=== PATIENT | female | born 1950 | race African-American/Black ===

== ENCOUNTER 2017-05-27 11:33 | Inpatient (IN) | payer MEDICAID, OTHER ==
[~2017-05-27] VITALS: Ht 167.6 cm; Wt 78.0 kg
[~2017-05-27 11:33] MED LIST: ALBU6.7H INH; BACL20TA PO; GABA600T PO; LEVO175T7 PO; NAPR220T66 PO; PROT40 PO
[2017-05-27 13:27] LABS: BASOPHILS % 1.3 % (0.0-2.0); EOSINOPHILS % 3.5 % (0.0-5.0); HEMATOCRIT. 40.6 % (36.0-48.0); HEMOGLOBIN. 13.1 g/dL (12.0-16.0); LYMPHOCYTES % 38.8 % (20.0-50.0); MEAN CORPUSCULAR HEMOGLOBIN 22.5 pg (28.0-32.0); MEAN CORPUSCULAR VOLUME 69.8 fL (81.0-99.0); MONOCYTES % 9.3 % (2.0-8.0); NEUTROPHILS % 47.1 % (40.0-76.0); PLATELET 181 x1000/uL (130-400); RED BLOOD CELL COUNT 5.81 mill/uL (4.2-5.4); RED CELL DISTRIBUTION WIDTH 14.8 % (11.6-14.6)
[2017-05-27 13:35] LABS: PROTHROMBIN TIME 10.1 sec (9.4-11.6)
[2017-05-27 13:43] LABS: CARBON DIOXIDE 26 mEq/L (21-32); CHLORIDE 106 mEq/L (98-107); ETHANOL BLOOD < 10 mg/dL; TROPONIN I 0.07 ng/mL (0.00-0.04)
[2017-05-27 14:15] LABS: PLATELET ESTIMATE NORMAL
[2017-05-27] MEDS ORDERED: DIPHENHYDRAMINE 50MG/ML VIAL IV PRN (15:00)
[2017-05-27] MEDS ORDERED: ONDANSETRON HCL 4MG/2ML VIAL IV PRN (15:00)
[2017-05-27] MEDS: MORPHINE SULFATE 4 MG/ML CPJ (NOT FOR IM USE) IV PRN ×2 (15:26→21:13)
[2017-05-27 16:42] LABS: CLARITY URINE CLEAR (CLEAR); COLOR URINE YELLOW (YELLOW); GLUCOSE URINE NEGATIVE (NEGATIVE); KETONES URINE NEGATIVE (NEGATIVE); LEUKOCYTE ESTERASE URINE NEGATIVE (NEGATIVE); NITRITE URINE NEGATIVE (NEGATIVE); OCCULT BLOOD URINE NEGATIVE (NEGATIVE); PH URINE 6.5 (4.5-8.0); PROTEIN URINE NEGATIVE (NEGATIVE); SPECIFIC GRAVITY URINE 1.007 (1.005-1.030); UROBILINOGEN URINE 0.2 E.U./dL (0.2-1.0)
[2017-05-27 16:50] LABS: *AMPHETAMINES SCREEN URINE NEGATIVE (NEGATIVE); *BARBITURATES SCREEN URINE NEGATIVE (NEGATIVE); *BENZODIAZEPINES SCREEN URINE NEGATIVE (NEGATIVE); *COCAINE SCREEN URINE NEGATIVE (NEGATIVE); CANNABINOID URINE SCREEN NEGATIVE (NEGATIVE); METHADONE URINE SCREEN NEGATIVE (NEGATIVE); OPIATES URINE SCREEN PRESUMTIVE POSITIVE (NEGATIVE); PHENCYCLIDINE URINE SCREEN NEGATIVE (NEGATIVE)
[2017-05-27] MEDS: ACETAMINOPHEN 325MG TABLET PO PRN (17:52)
[2017-05-27 18:00] VITALS: BP 141/82
[2017-05-27 18:19] VITALS: BP 141/82
[2017-05-27] MEDS ORDERED: PNEUMOCOCCAL 23-VAL P-SAC VAC 0.5 ML IM ONE (19:00)
[2017-05-27 20:00] VITALS: BP 109/66
[2017-05-27] MEDS: SODIUM CHLORIDE 0.9% INJ 3ML FLUSH IVF SCH (21:14)
[2017-05-27 22:00] VITALS: BP 107/68
[2017-05-27] MEDS ORDERED: BUPR-102 PO (23:15)
[2017-05-27] MEDS ORDERED: NICO-645 TD (23:15)
[2017-05-27] MEDS ORDERED: LOSA50TA20 PO (23:15)
[2017-05-27] MEDS ORDERED: IRON1CAP21 PO (23:15)
[2017-05-27] MEDS ORDERED: LEVO112T2 PO (23:15)
[2017-05-27] MEDS ORDERED: MELO-106 PO (23:15)
[2017-05-27] MEDS ORDERED: OLAN15TA3 PO (23:15)
[2017-05-27] MEDS ORDERED: LORA2VIA33 PO (23:15)
[2017-05-27] MEDS ORDERED: ATOR20TA PO (23:15)
[2017-05-28] VITALS (9 sets, daily range): BP systolic 103–109; BP diastolic 63–70
[2017-05-28] MEDS ORDERED: CITA20TA19 PO (01:06)
[2017-05-28] MEDS ORDERED: CARI350T PO (01:06)
[2017-05-28] MEDS ORDERED: VIT1TABL86 PO (01:06)
[2017-05-28] MEDS: MORPHINE SULFATE 4 MG/ML CPJ (NOT FOR IM USE) IV PRN ×2 (01:15→09:07)
[2017-05-28] MEDS ORDERED: LORAZEPAM 0.5MG TABLET PO PRN (03:00)
[2017-05-28] MEDS: SODIUM CHLORIDE 0.9% INJ 3ML FLUSH IVF SCH (04:51)
[2017-05-28] MEDS ORDERED: LEVOTHYROXINE SODIUM 112MCG TABLET PO SCH (07:30)
[2017-05-28] MEDS ORDERED: NICOTINE 7MG PATCH TD SCH (09:00)
[2017-05-28] MEDS ORDERED: CHOLECALCIFEROL (D3) 1000 UNIT TABLET PO SCH (09:00)
[2017-05-28] MEDS ORDERED: BUPROPION HCL 150MG TABLET XL 24HR PO SCH (09:00)
[2017-05-28] MEDS ORDERED: LOSARTAN POTASSIUM 50 MG TABLET PO SCH (09:00)
[2017-05-28] MEDS ORDERED: CITALOPRAM HYDROBROMIDE 20MG TABLET PO SCH (09:00)
[2017-05-28] MEDS: ACETAMINOPHEN 325MG TABLET PO PRN (16:57)
[2017-05-28] MEDS ORDERED: ATORVASTATIN CALCIUM 20MG TABLET PO SCH (21:00)
== END 2017-05-28 17:30 | disposition home or self-care (01) | DRG 45 ==
LOC: ER 12:59 → 5EST 14:04 → EDBEDREQ 14:07 → ENRESERV 14:49
PROVIDERS: ADMIT Internal Medicine; ATTEND Internal Medicine
DX: I63.9 Cerebral infarction, unspecified (principal); F31.4 Bipolar disorder, current episode depressed, severe, without psychotic features; I10 Essential (primary) hypertension; R51 Headache; E03.9 Hypothyroidism, unspecified; E78.00 Pure hypercholesterolemia, unspecified; F41.1 Generalized anxiety disorder; G89.4 Chronic pain syndrome; J44.9 Chronic obstructive pulmonary disease, unspecified; M47.812 Spondylosis without myelopathy or radiculopathy, cervical region; G81.94 Hemiplegia, unspecified affecting left nondominant side; E05.90 Thyrotoxicosis, unspecified without thyrotoxic crisis or storm; Z83.3 Family history of diabetes mellitus; Z79.82 Long term (current) use of aspirin; Z86.73 Personal history of transient ischemic attack (TIA), and cerebral infarction without residual deficits; Z98.1 Arthrodesis status; Z87.891 Personal history of nicotine dependence; Z79.899 Other long term (current) drug therapy; Z88.0 Allergy status to penicillin
CPT/HCPCS: 36415; 70450; 70551; 71010; 80053; 80305; 81003; 82962; 83880; 84484; 85025; 85610; 93005; 93880; 96374; 99291; G0482; J2270; J2405

== ENCOUNTER 2019-08-25 10:50 | Emergency (ER) | payer MEDICARE, OTHER ==
[~2019-08-25] VITALS: Ht 165.1 cm; Wt 76.0 kg
[~2019-08-25 10:50] MED LIST changes: -ALBU6.7H INH; +ALBU6.7H11 INH; +ATOR20TA PO; +BUPR-102 PO; +CARI350T28 PO; +CITA20TA19 PO; +IRON1CAP21 PO; +LEVO112T2 PO; +LORA2VIA34 PO; +LOSA50TA41 PO; +MELO-106 PO; +NICO-645 TD; +OLAN15TA3 PO; +VIT1TABL86 PO
[2019-08-25] MEDS ORDERED: ALBUTEROL (0.083%) 2.5MG/3ML NEB HHN STA (11:40)
[2019-08-25] MEDS ORDERED: IPRATROPIUM BROMIDE (0.02%) 0.5MG/2.5ML NEB HHN STA (11:40)
[2019-08-25] MEDS ORDERED: ASPIRIN 81MG TABLET PO ONE (11:45)
[2019-08-25 12:29] LABS: HEMOGLOBIN. 14.6 g/dL (12.0-16.0); MEAN CORPUSCULAR HEMOGLOBIN 22.3 pg (28.0-32.0); MEAN CORPUSCULAR VOLUME 70.3 fL (81.0-99.0); MEAN PLATELET VOLUME 9.3 fl (7.4-10.4); PLATELET 170 x1000/uL (130-400); RED BLOOD CELL COUNT 6.55 mill/uL (4.2-5.4); RED CELL DISTRIBUTION WIDTH 18.5 % (11.6-14.6)
[2019-08-25 12:36] LABS: CHLORIDE 108 mEq/L (98-107)
[2019-08-25] MEDS ORDERED: NITROGLYCERIN 0.4MG TABLET SL SL ONE (12:45)
[2019-08-25] MEDS ORDERED: HYDROCODONE/ACETAMINOPHEN 10/325MG TABLET PO ONE (13:00)
[2019-08-25 13:03] LABS: CLARITY URINE TURBID (CLEAR); COLOR URINE YELLOW (YELLOW); KETONES URINE NEGATIVE (NEGATIVE); LEUKOCYTE ESTERASE URINE 3+ (NEGATIVE); NITRITE URINE POSITIVE (NEGATIVE); OCCULT BLOOD URINE 1+ (NEGATIVE); PH URINE 6.5 (4.5-8.0); PROTEIN URINE 1+ (NEGATIVE); SPECIFIC GRAVITY URINE 1.013 (1.005-1.030)
[2019-08-25] MEDS ORDERED: LEVOFLOXACIN 750MG PREMIX 150 ML IV ONE (13:30)
[2019-08-25 13:55] LABS: PLATELET ESTIMATE NORMAL
[2019-08-25] MEDS ORDERED: ACETAMINOPHEN 325MG TABLET PO ONE (15:45)
[2019-08-25] MEDS ORDERED: LORAZEPAM 0.5MG TABLET PO ONE (16:15)
[2019-08-25 18:10] VITALS: BP 125/72
== END 2019-08-25 18:50 | disposition short-term general hospital (02) ==
LOC: ER 10:50
DX: R07.9 Chest pain, unspecified (principal); I10 Essential (primary) hypertension; E11.9 Type 2 diabetes mellitus without complications; E78.00 Pure hypercholesterolemia, unspecified; E05.90 Thyrotoxicosis, unspecified without thyrotoxic crisis or storm; F17.210 Nicotine dependence, cigarettes, uncomplicated; Z86.73 Personal history of transient ischemic attack (TIA), and cerebral infarction without residual deficits; Z88.0 Allergy status to penicillin; Z79.899 Other long term (current) drug therapy
CPT/HCPCS: 36415; 71045; 80053; 81003; 83880; 84484; 85025; 87077; 87086; 87186; 87804; 93005; 94640; 96374; 99285; 99406; J1956; J7611

== ENCOUNTER 2021-11-07 15:05 | Inpatient (IN) | payer MEDICARE, OTHER ==
[~2021-11-07] VITALS: Ht 165.1 cm; Wt 75.0 kg
[~2021-11-07 15:05] MED LIST changes: -ALBU6.7H11 INH; +ALBU6.7H15 INH
[2021-11-07] MEDS ORDERED: MORPHINE SULFATE 4 MG/ML CPJ (NOT FOR IM USE) IV STA ×2 (15:32→16:41)
[2021-11-07] MEDS ORDERED: ONDANSETRON HCL 4MG/2ML INJ IV STA ×2 (15:32→16:41)
[2021-11-07] MEDS ORDERED: SODIUM CHLORIDE 0.9% 1,000 ML IV ONE (15:45)
[2021-11-07 16:15] LABS: BASOPHILS % 1.3 % (0.0-2.0); EOSINOPHILS % 4.2 % (0.0-5.0); HEMATOCRIT. 41.1 % (36.0-48.0); HEMOGLOBIN. 13.1 g/dL (12.0-16.0); LYMPHOCYTES % 34.4 % (20.0-50.0); MEAN CORPUSCULAR HEMOGLOBIN 22.4 pg (28.0-32.0); MEAN CORPUSCULAR VOLUME 70.4 fL (81.0-99.0); MEAN PLATELET VOLUME 8.4 fl (7.4-10.4); MONOCYTES % 11.6 % (2.0-8.0); NEUTROPHILS % 48.5 % (40.0-76.0); PLATELET 180 x1000/uL (130-400); RED BLOOD CELL COUNT 5.85 mill/uL (4.2-5.4); RED CELL DISTRIBUTION WIDTH 13.8 % (11.6-14.6)
[2021-11-07 16:21] LABS: CHLORIDE 106 mEq/L (98-107)
[2021-11-07 16:26] LABS: CLARITY URINE CLEAR (CLEAR); COLOR URINE YELLOW (YELLOW); KETONES URINE NEGATIVE (NEGATIVE); LEUKOCYTE ESTERASE URINE TRACE (NEGATIVE); NITRITE URINE NEGATIVE (NEGATIVE); OCCULT BLOOD URINE NEGATIVE (NEGATIVE); PH URINE 6.5 (4.5-8.0); PROTEIN URINE NEGATIVE (NEGATIVE); SPECIFIC GRAVITY URINE 1.006 (1.005-1.030); UROBILINOGEN URINE 0.2 E.U./dL (0.2-1.0)
[2021-11-07] MEDS ORDERED: ASPIRIN 325MG EC TABLET PO ONE (18:15)
[2021-11-07] MEDS: MORPHINE SULFATE 2 MG/ML CPJ (NOT FOR IM USE) IV PRN (23:31)
[2021-11-08] MEDS: MORPHINE SULFATE 2 MG/ML CPJ (NOT FOR IM USE) IV PRN ×2 (04:38→10:07)
[2021-11-08] MEDS ORDERED: ASPIRIN 81MG TABLET PO SCH (09:00)
[2021-11-08 09:47] LABS: T4 FREE 0.9 ng/dL (0.76-1.46)
[2021-11-08 10:07] VITALS: BP 109/56
[2021-11-08] MEDS ORDERED: CLONIDINE 0.1MG TABLET PO PRN (10:45)
[2021-11-08] MEDS ORDERED: GUAIFENESIN 200MG/10ML SUGAR FREE UDC PO PRN (10:45)
[2021-11-08] MEDS ORDERED: ACETAMINOPHEN 325MG TABLET PO PRN (10:45)
[2021-11-08] MEDS ORDERED: ACETAMINOPHEN 650MG SUPP PR PRN (10:45)
[2021-11-08] MEDS ORDERED: LORAZEPAM 0.5MG TABLET PO PRN (10:45)
[2021-11-08] MEDS ORDERED: IPRATROPIUM/ALBUTEROL 0.5-3(2.5)MG/3ML NEB NEB PRN (10:45)
[2021-11-08] MEDS ORDERED: HYDROCODONE/ACETAMINOPHEN 5/325MG TABLET PO PRN (10:45)
[2021-11-08] MEDS ORDERED: DEXTROSE 50% WATER 50ML SYRINGE IV PRN (10:45)
[2021-11-08] MEDS ORDERED: DOCUSATE SODIUM 100MG CAPSULE PO PRN (10:45)
[2021-11-08] MEDS ORDERED: ONDANSETRON HCL 4MG/2ML INJ IV PRN (10:45)
[2021-11-08] MEDS ORDERED: NA PHOS,M-B/NA PHOS,DI-BA ENEMA 118ML PR PRN (10:45)
[2021-11-08] MEDS ORDERED: MAGNESIUM/ALUMINUM HYDROXIDE/SIMETHICONE 30ML UDC PO PRN (10:45)
[2021-11-08] MEDS ORDERED: LACTULOSE 20G/30ML UDC PO ONE (10:45)
[2021-11-08] MEDS ORDERED: DIPHENHYDRAMINE 50MG/ML VIAL IV PRN (10:45)
[2021-11-08] MEDS ORDERED: BLOOD SUGAR DIAGNOSTIC STRIP TEST SCH (11:30)
[2021-11-08] MEDS ORDERED: INSULIN LISPRO 100 UNITS/ML SUBCUT SCH (12:00)
[2021-11-08] MEDS ORDERED: FAMOTIDINE 20MG TABLET PO SCH (21:00)
[2021-11-09] MEDS ORDERED: ASPIRIN 81MG EC TABLET PO SCH (09:00)
== END 2021-11-08 11:23 | disposition left against medical advice (07) | DRG 392 ==
LOC: ER 15:05 → MICUSO 17:17
PROVIDERS: ADMIT Internal Medicine; ATTEND Internal Medicine
DX: K59.00 Constipation, unspecified (principal); E11.9 Type 2 diabetes mellitus without complications; E78.00 Pure hypercholesterolemia, unspecified; R10.9 Unspecified abdominal pain; R07.89 Other chest pain; J44.9 Chronic obstructive pulmonary disease, unspecified; I10 Essential (primary) hypertension; F17.200 Nicotine dependence, unspecified, uncomplicated; I25.2 Old myocardial infarction; Z98.51 Tubal ligation status; Z88.0 Allergy status to penicillin; Z79.899 Other long term (current) drug therapy; Z53.29 Procedure and treatment not carried out because of patient's decision for other reasons; Z86.73 Personal history of transient ischemic attack (TIA), and cerebral infarction without residual deficits
CPT/HCPCS: 36415; 71045; 74176; 80053; 80061; 81003; 83036; 83880; 84439; 84443; 84484; 85025; 85379; 99291; J2270; J2405; J7030

== ENCOUNTER 2022-06-06 23:08 | Emergency (ER) | payer MEDICARE ==
[~2022-06-06] VITALS: Ht 165.1 cm; Wt 64.0 kg
[2022-06-07] MEDS ORDERED: ONDANSETRON HCL 4MG/2ML INJ IV STA (00:33)
[2022-06-07] MEDS ORDERED: ONDANSETRON 4MG ODT PO ONE (00:45)
[2022-06-07] MEDS ORDERED: SODIUM CHLORIDE 0.9% 1,000 ML IV ONE (02:00)
[2022-06-07] MEDS ORDERED: ONDANSETRON HCL 4MG/2ML INJ ONE (02:22)
[2022-06-07] MEDS ORDERED: ONDANSETRON 4MG ODT PO NR (02:30)
[2022-06-07 03:18] LABS: BASOPHILS % 0.6 % (0.0-2.0); EOSINOPHILS % 0.4 % (0.0-5.0); HEMATOCRIT. 45.6 % (36.0-48.0); HEMOGLOBIN. 14.8 g/dL (12.0-16.0); LYMPHOCYTES % 12.7 % (20.0-50.0); MEAN CORPUSCULAR HEMOGLOBIN 22.9 pg (28.0-32.0); MEAN CORPUSCULAR VOLUME 70.3 fL (81.0-99.0); MEAN PLATELET VOLUME 9.1 fl (7.4-10.4); MONOCYTES % 8.5 % (2.0-8.0); NEUTROPHILS % 77.8 % (40.0-76.0); PLATELET 171 x1000/uL (130-400); RED BLOOD CELL COUNT 6.48 mill/uL (4.2-5.4); RED CELL DISTRIBUTION WIDTH 15.1 % (11.6-14.6)
[2022-06-07 03:24] LABS: CHLORIDE 98 mEq/L (98-107)
[2022-06-07] MEDS ORDERED: POTASSIUM CHLORIDE 20MEQ TABLET SR PO NR (04:00)
[2022-06-07 06:30] VITALS: BP 139/73
== END 2022-06-07 07:25 | disposition home or self-care (01) ==
LOC: ER 23:08
DX: F14.980 Cocaine use, unspecified with cocaine-induced anxiety disorder (principal); E87.6 Hypokalemia; I10 Essential (primary) hypertension; E11.9 Type 2 diabetes mellitus without complications; J45.909 Unspecified asthma, uncomplicated; J44.9 Chronic obstructive pulmonary disease, unspecified; Z86.73 Personal history of transient ischemic attack (TIA), and cerebral infarction without residual deficits; Z79.51 Long term (current) use of inhaled steroids; Z79.899 Other long term (current) drug therapy
CPT/HCPCS: 36415; 80048; 85025; 96360; 99283; J2405; J7030; Q0162

== ENCOUNTER 2025-02-03 15:41 | Emergency (ER) | payer MEDICARE, MEDICAID ==
[~2025-02-03] VITALS: Ht 167.6 cm; Wt 82.0 kg
[~2025-02-03 15:41] MED LIST changes: +CARI-518 PO; -CARI350T28 PO
[2025-02-03 15:43] VITALS: TEMP 36.9; O2SAT 95
[2025-02-03 16:59] LABS: BASOPHILS % 0.6 % (0.0-2.0); EOSINOPHILS % 4.0 % (0.0-5.0); HEMATOCRIT. 37.0 % (36.0-48.0); HEMOGLOBIN. 10.8 g/dL (12.0-16.0); LYMPHOCYTES % 38.9 % (20.0-50.0); MEAN PLATELET VOLUME 8.5 fl (7.4-10.4); MONOCYTES % 14.2 % (2.0-8.0); NEUTROPHILS % 42.3 % (40.0-76.0); PLATELET 146 x1000/uL (130-400); RED BLOOD CELL COUNT 5.20 mill/uL (4.2-5.4); RED CELL DISTRIBUTION WIDTH 15.8 % (11.6-14.6)
[2025-02-03 17:03] LABS: CREATININE 1.5 mg/dL (0.6-1.0); UREA NITROGEN BLOOD 17 mg/dL (9-23)
[2025-02-03 17:05] LABS: ASPARTATE AMINOTRANSFERASE 21 IU/L (<34); BILIRUBIN TOTAL 0.3 mg/dL (0.1-1.0)
[2025-02-03 17:06] LABS: PROTEIN TOTAL 7.0 g/dL (6.0-8.3)
[2025-02-03 18:31] VITALS: BP 119/73; PULSE 72; RESP 14
[2025-02-03] MEDS: KETOROLAC 30MG/ML VIAL IM SCH (18:31)
[2025-02-03 19:19] LABS: TROPONIN I HIGH SENSITIVITY 31 ng/L (3.0-34)
[2025-02-03] MEDS ORDERED: ACET-2708 MT (19:41)
== END 2025-02-03 20:17 | disposition home or self-care (01) ==
LOC: ER 15:41
DX: G43.909 Migraine, unspecified, not intractable, without status migrainosus (principal); E11.9 Type 2 diabetes mellitus without complications; E78.00 Pure hypercholesterolemia, unspecified; F41.9 Anxiety disorder, unspecified; I10 Essential (primary) hypertension; J44.89 Other specified chronic obstructive pulmonary disease; Z79.1 Long term (current) use of non-steroidal anti-inflammatories (NSAID); Z79.890 Hormone replacement therapy; Z79.899 Other long term (current) drug therapy; Z86.73 Personal history of transient ischemic attack (TIA), and cerebral infarction without residual deficits; Z88.0 Allergy status to penicillin; Z98.51 Tubal ligation status
CPT/HCPCS: 99285; 70450; 71045; 80053; 85025; 84484; 36415; 93005; 96372; J1885